=== PATIENT | female | born 1980 | race Caucasian/White ===

== ENCOUNTER 2019-09-19 18:06 | Inpatient (IN) | payer BC, OTHER ==
[~2019-09-19] VITALS: Ht 160 cm; Wt 74.9 kg
[2019-09-19 18:59] LABS: BASOPHILS # (AUTO) 0.1 X10'3 (0-0.2); BASOPHILS % (AUTO) 0.2 % (0-1); EOSINOPHILS % (AUTO) 0.1 % (0-6); HEMATOCRIT 39.7 % (35.0-45.0); HEMOGLOBIN 13.6 g/dl (12.0-16.0); LYMPHOCYTES # (AUTO) 1.5 X10'3 (1.1-4.8); LYMPHOCYTES % (AUTO) 6.5 % (21-51); MEAN CORPUSCULAR HEMOGLOBIN 30.3 PG (27.0-31.0); MEAN CORPUSCULAR HGB CONC 34.1 g/dL (33.0-36.5); MEAN CORPUSCULAR VOLUME 88.8 FL (78-98); MEAN PLATELET VOLUME 7.4 FL (7.4-10.4); MONOCYTES # (AUTO) 1.1 X10'3 (0-0.9); MONOCYTES % (AUTO) 4.6 % (2-12); NEUTROPHILS # (AUTO) 20.8 X10'3 (1.8-7.7); NEUTROPHILS % (AUTO) 88.6 % (42-75); PLATELET COUNT 432 X10'3 (140-440); RED BLOOD COUNT 4.47 X10'6 (4.20-5.60); RED CELL DISTRIBUTION WIDTH 12.7 % (11.5-14.5); WHITE BLOOD COUNT 23.5 X10'3 (4.5-11.0)
[2019-09-19 19:10] LABS: ALANINE AMINOTRANSFERASE 30 U/L (12-78); ALBUMIN 4.1 G/DL (3.4-5.0); ALBUMIN/GLOBULIN RATIO 1.1 (1.1-1.5); ALKALINE PHOSPHATASE 62 IU/L (46-116); ANION GAP 11 (8-16); ASPARTATE AMINO TRANSFERASE 25 U/L (10-37); BILIRUBIN,TOTAL 0.5 MG/DL (0.1-1.0); BLOOD UREA NITROGEN 13 MG/DL (7-18); BUN/CREATININE RATIO 21.3 (6.6-38.0); CALCIUM 8.8 MG/DL (8.5-10.1); CHLORIDE 101 MMOL/L (99-107); CREATININE 0.61 MG/DL (0.40-0.90); GLUCOSE 109 MG/DL (70-104); LIPASE 58 U/L (73-393); POTASSIUM 4.2 MMOL/L (3.5-5.1); SODIUM 137 MMOL/L (135-145); TOTAL CARBON DIOXIDE 24.9 MMOL/L (24-32); TOTAL PROTEIN 7.7 G/DL (6.4-8.2); eGFR > 90 ML/MIN
[2019-09-19] MEDS ORDERED: ondansetron 4mg rapidly disintigrating tab PO ONE (21:00)
[2019-09-19] MEDS ORDERED: morphine 4 MG/ML inj SYRINge IM ONE (21:00)
[2019-09-19 21:08] LABS: COLOR,URINE YELLOW (Yellow); GLUCOSE, URINE NEGATIVE (Neg); KETONES,URINE >=80 mg/dl (Neg); LEUKOCYTE ESTERASE ,URINE NEGATIVE (Neg); NITRITES, URINE NEGATIVE (Neg); OCCULT BLOOD,URINE MODERATE (Neg); PROTEIN,URINE NEGATIVE (Neg)
[2019-09-19] MEDS ORDERED: ondansetron/PF 4mg/2ml inj IV ONE (21:10)
[2019-09-19] MEDS ORDERED: morphine 4 MG/ML inj SYRINge IV ONE ×2 (21:10→22:05)
[2019-09-19 21:13] LABS: CLARITY,URINE SLIGHTLY CLOUDY (Clear); UA COLLECTION TYPE CLN CATCH MIDSTREAM
[2019-09-19 21:14] LABS: WBC,URINE 0-4 /HPF (0-4)
[2019-09-19 21:15] LABS: BACTERIA,URINE 2+ /HPF (Neg); MUCUS STRANDS MANY /LPF (Neg); RBC,URINE 0-2 /HPF (0-2); SQUAMOUS EPITHELIAL CELL,UR MODERATE /LPF (FEW)
[2019-09-19 21:23] LABS: URINE HCG NEGATIVE (NEG)
[2019-09-19] MEDS ORDERED: normal saline 1000ml 1,000 ML IV ONE (22:10)
[2019-09-19] MEDS ORDERED: HYDROmorphone 1 mg/ml syringe IV ONE (22:35)
[2019-09-19] MEDS ORDERED: ceFOXitin 1 GM/D5W 50mL IVPB 50 ML IV ONE (22:40)
[2019-09-19] MEDS ORDERED: DULO60CA65 PO (23:23)
[2019-09-19] MEDS ORDERED: DICL-182 PO (23:23)
[2019-09-19] MEDS ORDERED: GABA600T13 PO ×2 (23:23→23:25)
[2019-09-20] VITALS (19 sets, daily range): BP systolic 106–160; BP diastolic 65–99
[2019-09-20] MEDS ORDERED: D5W 1 GM IV SCH ×2
[2019-09-20] MEDS ORDERED: HYDROmorphone inj. 0.5 MG/0.5 ML DISP.SYRIN IV ONE
[2019-09-20] MEDS ORDERED: NORMAL SALINE IV SCH ×2
[2019-09-20] MEDS ORDERED: CEFOXITIN IV SCH ×2
--- NOTE | 2019-09-20 00:01 | NUR ---
PATIENT MOVED TO ROOM 13 IN THE MAIN ER PER LUI PANDEY DILAUDID TO BE GIVEN FOR OUT OF CONTROL ABDOMINAL PAIN. BEDSIDE REPORT TO MARISSA MORRIS.
[2019-09-20 00:02] LABS: PARTIAL THROMBOPLASTIN TIME 31 SECONDS (22-32)
--- NOTE | 2019-09-20 00:15 | NUR ---
PT EDUCATED ABOUT NPO STATUS
[2019-09-20] MEDS ORDERED: mag hydrox/Alum hydrox/simeth 30ml oral suspension PO PRN (01:10)
[2019-09-20] MEDS ORDERED: ondansetron/PF 4mg/2ml inj IV PRN ×2 (01:10→12:55)
[2019-09-20] MEDS ORDERED: morphine 2 MG/ML inj. syringe IV PRN (01:10)
[2019-09-20] MEDS ORDERED: acetaminophen 325mg tablet PO PRN (01:10)
[2019-09-20] MEDS ORDERED: magnesium hydroxide 30ml (MOM) UD suspension PO PRN (01:10)
[2019-09-20] MEDS: normal saline 1000ml 1,000 ML IV SCH ×4 (01:40→21:28)
--- NOTE | 2019-09-20 02:00 | NUR ---
RECEIVED PATIENT TO ROOM 4018 AND ASSUMED CARE.
[2019-09-20] MEDS: morphine 2 MG/ML inj. syringe IV PRN ×4 (02:08→10:22)
--- NOTE | 2019-09-20 06:29 | NUR ---
REPORT GIVEN TO HALLEY MORRIS
[2019-09-20] MEDS: gabapentin 400mg capsule PO SCH ×2 (07:31→21:00)
[2019-09-20] MEDS ORDERED: ceFOXitin 1 GM/D5W 50mL IVPB 1,000 GM in normal saline 100ml IV soln 100 ML IV SCH (08:00)
[2019-09-20] MEDS: duloxetine 30mg CAPSULE.DR PO SCH (08:00)
[2019-09-20] MEDS ORDERED: ceFOXitin 1 GM/D5W 50mL IVPB 50 ML IV SCH (08:00)
[2019-09-20] MEDS ORDERED: BUPIVAcaine/PF 2.5 mg/ml (0.25%) 30ml vial ONE (12:02)
[2019-09-20] MEDS ORDERED: ringers solution, lacted 1,000 ML IV SCH (12:51)
[2019-09-20] MEDS ORDERED: proCHLORperazine 10 MG/2 ml inj IV PRN (12:55)
[2019-09-20] MEDS ORDERED: morphine 4 MG/ML inj SYRINge IV PRN ×2 (12:55)
[2019-09-20] MEDS ORDERED: meperidine/PF 25mg/ml syringe IV PRN ×2 (12:55)
[2019-09-20] MEDS ORDERED: fentaNYL/PF 50MCG/1 ML 2ML syringe ONE (13:12)
[2019-09-20] MEDS ORDERED: rocuronium 10mg/ml inj IV ONE (13:12)
[2019-09-20] MEDS ORDERED: propofol inj 20 ML IV ONE (13:12)
[2019-09-20] MEDS ORDERED: midazolam 2 mg/2 ml injection ONE (13:12)
[2019-09-20] MEDS ORDERED: sevoflurane 250ml liquid IH ONE (13:26)
[2019-09-20] MEDS ORDERED: glycopyrrolate 0.2mg/ml inj ONE (13:26)
[2019-09-20] MEDS ORDERED: clindamycin phosphate 150mg/ml inj. ONE (14:10)
[2019-09-20] MEDS ORDERED: gentamicin 40 MG/1 ML inj ONE (14:10)
[2019-09-20] MEDS ORDERED: acetaminophen 1,000mg/100ml IV 100 ML IV ONE (14:24)
[2019-09-20] MEDS ORDERED: neostigmine methylsulfate 1 MG/ML 10ml vial ONE (14:28)
--- NOTE | 2019-09-20 14:45 | NUR ---
Received from OR via BED , accompanied by Anesthesiologist DR MEJIA and report given by Anesthesiolgist. PATIENT WAKING UP, C/O PAIN SEE EMAR, V/S WNL, NEUROVASCULAR CHECKS INTACT, 20G PIV LUE, SCD ON, DRESSING CDI TO ABDOMEN W/ JUVENAL DRAIN 15CC IN JUVENAL LIGHT RED WASH.
[2019-09-20] MEDS: meperidine/PF 25mg/ml syringe IV PRN ×2 (14:51→15:32)
[2019-09-20] MEDS: ketorolac trometh. 30mg/ml inj. IV PRN (15:31)
--- NOTE | 2019-09-20 15:45 | NUR ---
PATIENT SLEEPY BUT ORIENTED X4, C/O PAIN SEE EMAR, V/S WNL, NEUROVASCULAR CHECKS INTACT, 20G PIV LUE, SCD ON, DRESSING CDI TO ABDOMEN W/ JUVENAL DRAIN 10CC IN JUVENAL LIGHT RED WASH. . TAKEN TO 4018 WITH ALL BELONGINGS AND HOOKED UP TO MONITORS IN ROOM AND REPORT GIVEN TO SENIOR TELECOMMUNICATIONS ENGINEER WHO HAS TAKEN OVER PATIENT CARE.
[2019-09-20] MEDS: HYDROmorphone 1 mg/ml syringe IV PRN ×2 (16:03→20:16)
[2019-09-20] MEDS: piperacillin/tazo 3.375gm/50ml 50 ML IV SCH (17:00)
--- NOTE | 2019-09-20 18:15 | NUR ---
RECEIVED REPORT FROM HALLEY MORRIS AND ASSUMED PATIENT CARE
--- NOTE | 2019-09-20 18:22 | NUR ---
REPORT TO ANJEL MORRIS
[2019-09-21] MEDS: piperacillin/tazo 3.375gm/50ml 50 ML IV SCH ×3 (00:17→15:29)
[2019-09-21] MEDS: HYDROmorphone 1 mg/ml syringe IV PRN ×2 (05:20→10:46)
[2019-09-21 06:10] VITALS: BP 121/79
--- NOTE | 2019-09-21 06:24 | NUR ---
I received patient report from Divina MORRIS
[2019-09-21 06:37] LABS: BASOPHILS % (AUTO) 0.1 % (0-1); EOSINOPHILS % (AUTO) 0.1 % (0-6); HEMATOCRIT 36.3 % (35.0-45.0); HEMOGLOBIN 12.3 g/dl (12.0-16.0); LYMPHOCYTES # (AUTO) 1.6 X10'3 (1.1-4.8); LYMPHOCYTES % (AUTO) 7.4 % (21-51); MEAN CORPUSCULAR HEMOGLOBIN 30.4 PG (27.0-31.0); MEAN CORPUSCULAR HGB CONC 33.7 g/dL (33.0-36.5); MEAN PLATELET VOLUME 7.6 FL (7.4-10.4); MONOCYTES # (AUTO) 1.1 X10'3 (0-0.9); MONOCYTES % (AUTO) 5.1 % (2-12); NEUTROPHILS # (AUTO) 18.9 X10'3 (1.8-7.7); NEUTROPHILS % (AUTO) 87.3 % (42-75); PLATELET COUNT 415 X10'3 (140-440); RED BLOOD COUNT 4.04 X10'6 (4.20-5.60); RED CELL DISTRIBUTION WIDTH 13.1 % (11.5-14.5); WHITE BLOOD COUNT 21.7 X10'3 (4.5-11.0)
[2019-09-21 07:12] LABS: ALANINE AMINOTRANSFERASE 19 U/L (12-78); ALBUMIN 2.7 G/DL (3.4-5.0); ALBUMIN/GLOBULIN RATIO 0.8 (1.1-1.5); ALKALINE PHOSPHATASE 51 IU/L (46-116); ANION GAP 10 (8-16); ASPARTATE AMINO TRANSFERASE 12 U/L (10-37); BILIRUBIN,TOTAL 0.5 MG/DL (0.1-1.0); BLOOD UREA NITROGEN 10 MG/DL (7-18); BUN/CREATININE RATIO 11.1 (6.6-38.0); CALCIUM 7.6 MG/DL (8.5-10.1); CHLORIDE 105 MMOL/L (99-107); GLUCOSE 117 MG/DL (70-104); POTASSIUM 3.6 MMOL/L (3.5-5.1); SODIUM 140 MMOL/L (135-145); TOTAL CARBON DIOXIDE 25.3 MMOL/L (24-32); TOTAL PROTEIN 6.3 G/DL (6.4-8.2); eGFR 70 ML/MIN
[2019-09-21] MEDS: ketorolac trometh. 30mg/ml inj. IV PRN ×3 (07:40→20:22)
[2019-09-21] MEDS: duloxetine 30mg CAPSULE.DR PO SCH (07:40)
[2019-09-21 10:00] VITALS: BP 90/53
--- NOTE | 2019-09-21 12:08 | NUR ---
PAGER ID: [phone] MESSAGE: Dr. Martini patient Theresa Menard has gram negative rods from blood culture left IV on the anaerobic at 23 hours. Linda [id number]
--- NOTE | 2019-09-21 15:00 | NUR ---
Dr. England came by and ordered to unpack wound and place gauze dressing over, and do not re-pack wound. [place] in tact no drainage from wound site. JUVENAL still draining serous fluid.
[2019-09-21] MEDS: normal saline 1000ml 1,000 ML IV SCH ×2 (15:29→20:22)
--- NOTE | 2019-09-21 18:22 | NUR ---
Problems reprioritized. Patient report given, questions answered & plan of care reviewed with Divina MORRIS.
[2019-09-21] MEDS: heparin, porcine 5000 units/ml vial SQ SCH (20:22)
[2019-09-21] MEDS: gabapentin 400mg capsule PO SCH (21:00)
[2019-09-21 22:00] VITALS: BP 108/67
[2019-09-22] MEDS: piperacillin/tazo 3.375gm/50ml 50 ML IV SCH ×3 (01:28→16:02)
[2019-09-22] MEDS: normal saline 1000ml 1,000 ML IV SCH ×2 (03:08→19:48)
[2019-09-22] MEDS: ketorolac trometh. 30mg/ml inj. IV PRN ×3 (04:33→19:29)
[2019-09-22 06:00] VITALS: BP 113/72
--- NOTE | 2019-09-22 06:15 | NUR ---
REPORT GIVEN TO JANA MORRIS
--- NOTE | 2019-09-22 06:30 | NUR ---
Patient in room [facility] 4018. I have received report from Divina MORRIS and had the opportunity to ask questions and assume patient care.
[2019-09-22 06:49] LABS: BASOPHILS % (AUTO) 0.3 % (0-1); EOSINOPHILS # (AUTO) 0.2 X10'3 (0-0.9); EOSINOPHILS % (AUTO) 1.2 % (0-6); HEMOGLOBIN 11.5 g/dl (12.0-16.0); LYMPHOCYTES # (AUTO) 1.1 X10'3 (1.1-4.8); LYMPHOCYTES % (AUTO) 8.1 % (21-51); MEAN CORPUSCULAR HEMOGLOBIN 30.4 PG (27.0-31.0); MEAN CORPUSCULAR HGB CONC 33.8 g/dL (33.0-36.5); MEAN CORPUSCULAR VOLUME 89.7 FL (78-98); MEAN PLATELET VOLUME 7.6 FL (7.4-10.4); MONOCYTES # (AUTO) 0.6 X10'3 (0-0.9); MONOCYTES % (AUTO) 4.6 % (2-12); NEUTROPHILS # (AUTO) 11.8 X10'3 (1.8-7.7); NEUTROPHILS % (AUTO) 85.8 % (42-75); PLATELET COUNT 401 X10'3 (140-440); RED BLOOD COUNT 3.79 X10'6 (4.20-5.60); RED CELL DISTRIBUTION WIDTH 13.1 % (11.5-14.5); WHITE BLOOD COUNT 13.8 X10'3 (4.5-11.0)
[2019-09-22 07:02] LABS: ALANINE AMINOTRANSFERASE 17 U/L (12-78); ALBUMIN 2.4 G/DL (3.4-5.0); ALBUMIN/GLOBULIN RATIO 0.6 (1.1-1.5); ALKALINE PHOSPHATASE 55 IU/L (46-116); ANION GAP 7 (8-16); ASPARTATE AMINO TRANSFERASE 10 U/L (10-37); BILIRUBIN,TOTAL 0.3 MG/DL (0.1-1.0); BLOOD UREA NITROGEN 14 MG/DL (7-18); CHLORIDE 108 MMOL/L (99-107); GLUCOSE 100 MG/DL (70-104); SODIUM 142 MMOL/L (135-145); TOTAL PROTEIN 6.2 G/DL (6.4-8.2); eGFR > 90 ML/MIN
[2019-09-22] MEDS: duloxetine 30mg CAPSULE.DR PO SCH (08:09)
[2019-09-22] MEDS: heparin, porcine 5000 units/ml vial SQ SCH ×2 (08:10→19:42)
[2019-09-22] MEDS: HYDROmorphone 1 mg/ml syringe IV PRN (08:20)
[2019-09-22 10:00] VITALS: BP 102/68
[2019-09-22 18:00] VITALS: BP 113/67
--- NOTE | 2019-09-22 18:31 | NUR ---
Problems reprioritized. Patient report given, questions answered & plan of care reviewed with Melinda MORRIS.
--- NOTE | 2019-09-22 18:42 | NUR ---
Student documentation: I have reviewed and agree with all interventions, assessments performed and documented by Dasia.
--- NOTE | 2019-09-22 18:50 | NUR ---
Patient in room [facility]TH[facility] 4018. I have received report from Dasia MORRIS and had the opportunity to ask questions and assume patient care.
[2019-09-22] MEDS: gabapentin 400mg capsule PO SCH (19:51)
[2019-09-22 22:00] VITALS: BP 111/75
[2019-09-23] MEDS: normal saline 1000ml 1,000 ML IV SCH (02:13)
[2019-09-23] MEDS: HYDROmorphone 1 mg/ml syringe IV PRN ×2 (03:46→11:44)
[2019-09-23 06:00] VITALS: BP 120/72
[2019-09-23 06:07] LABS: BASOPHILS # (AUTO) 0.1 X10'3 (0-0.2); BASOPHILS % (AUTO) 0.8 % (0-1); EOSINOPHILS # (AUTO) 0.3 X10'3 (0-0.9); EOSINOPHILS % (AUTO) 3.4 % (0-6); HEMATOCRIT 30.9 % (35.0-45.0); HEMOGLOBIN 10.7 g/dl (12.0-16.0); LYMPHOCYTES % (AUTO) 11.5 % (21-51); MEAN CORPUSCULAR HEMOGLOBIN 30.9 PG (27.0-31.0); MEAN CORPUSCULAR HGB CONC 34.5 g/dL (33.0-36.5); MEAN CORPUSCULAR VOLUME 89.7 FL (78-98); MEAN PLATELET VOLUME 7.3 FL (7.4-10.4); MONOCYTES # (AUTO) 0.5 X10'3 (0-0.9); MONOCYTES % (AUTO) 5.9 % (2-12); NEUTROPHILS # (AUTO) 6.8 X10'3 (1.8-7.7); NEUTROPHILS % (AUTO) 78.4 % (42-75); PLATELET COUNT 424 X10'3 (140-440); RED BLOOD COUNT 3.44 X10'6 (4.20-5.60); RED CELL DISTRIBUTION WIDTH 13.2 % (11.5-14.5); WHITE BLOOD COUNT 8.7 X10'3 (4.5-11.0)
--- NOTE | 2019-09-23 06:30 | NUR ---
Problems reprioritized. Patient report given, questions answered & plan of care reviewed with Ameena MORRIS and Dasia MORRIS.
[2019-09-23 06:33] LABS: ANION GAP 8 (8-16); BLOOD UREA NITROGEN 13 MG/DL (7-18); BUN/CREATININE RATIO 21.3 (6.6-38.0); CALCIUM 8.1 MG/DL (8.5-10.1); CHLORIDE 109 MMOL/L (99-107); CREATININE 0.61 MG/DL (0.40-0.90); GLUCOSE 103 MG/DL (70-104); POTASSIUM 3.9 MMOL/L (3.5-5.1); SODIUM 145 MMOL/L (135-145); TOTAL CARBON DIOXIDE 27.8 MMOL/L (24-32); eGFR > 90 ML/MIN
[2019-09-23 06:34] LABS: ALANINE AMINOTRANSFERASE 16 U/L (12-78); ALBUMIN 2.4 G/DL (3.4-5.0); ALBUMIN/GLOBULIN RATIO 0.6 (1.1-1.5); ALKALINE PHOSPHATASE 52 IU/L (46-116); ASPARTATE AMINO TRANSFERASE 11 U/L (10-37); BILIRUBIN,TOTAL 0.4 MG/DL (0.1-1.0); TOTAL PROTEIN 6.1 G/DL (6.4-8.2)
[2019-09-23] MEDS: duloxetine 30mg CAPSULE.DR PO SCH (07:50)
[2019-09-23] MEDS: ketorolac trometh. 30mg/ml inj. IV PRN ×2 (07:51→19:50)
[2019-09-23] MEDS: piperacillin/tazo 3.375gm/50ml 50 ML IV SCH ×3 (07:51→15:57)
[2019-09-23] MEDS: heparin, porcine 5000 units/ml vial SQ SCH ×2 (07:51→19:49)
[2019-09-23] MEDS ORDERED: LEVO750T46 PO (09:46)
[2019-09-23 10:00] VITALS: BP 108/68
--- NOTE | 2019-09-23 12:49 | NUR ---
MD England came to see patient. New orders received per MD England D/C Thursday and f/u with him one week from Thursday. MD England made aware of JUVENAL drainage amount, ordered for JUVENAL drain to be discontinued.
[2019-09-23] MEDS: HYDROcodone/acetaminophen 10/325mg tab PO PRN (15:57)
--- NOTE | 2019-09-23 17:00 | NUR ---
JUVENAL drain discontinued. Tubing intact. No redness, pain, or discharge.
[2019-09-23 18:00] VITALS: BP 112/73
--- NOTE | 2019-09-23 18:05 | NUR ---
Problems reprioritized. Patient report given, questions answered & plan of care reviewed with Melinda MORRIS.
--- NOTE | 2019-09-23 18:24 | NUR ---
Patient in room [facility] 4018. I have received report from Ameena MORRIS and Dasia MORRIS and had the opportunity to ask questions and assume patient care.
[2019-09-23] MEDS: gabapentin 400mg capsule PO SCH (19:55)
[2019-09-23 22:00] VITALS: BP 128/76
[2019-09-24] MEDS: piperacillin/tazo 3.375gm/50ml 50 ML IV SCH ×2 (00:05→07:19)
[2019-09-24] MEDS: HYDROcodone/acetaminophen 10/325mg tab PO PRN ×2 (04:08→10:30)
[2019-09-24 05:00] VITALS: BP 110/73
--- NOTE | 2019-09-24 06:37 | NUR ---
Problems reprioritized. Patient report given, questions answered & plan of care reviewed with Ameena MORRIS and Dasia MORRIS.
[2019-09-24] MEDS: heparin, porcine 5000 units/ml vial SQ SCH (07:19)
[2019-09-24] MEDS: duloxetine 30mg CAPSULE.DR PO SCH (07:19)
[2019-09-24 07:28] LABS: BASOPHILS # (AUTO) 0.1 X10'3 (0-0.2); BASOPHILS % (AUTO) 0.9 % (0-1); EOSINOPHILS # (AUTO) 0.4 X10'3 (0-0.9); EOSINOPHILS % (AUTO) 5.2 % (0-6); HEMATOCRIT 29.4 % (35.0-45.0); HEMOGLOBIN 10.2 g/dl (12.0-16.0); LYMPHOCYTES # (AUTO) 1.5 X10'3 (1.1-4.8); LYMPHOCYTES % (AUTO) 19.4 % (21-51); MEAN CORPUSCULAR HGB CONC 34.9 g/dL (33.0-36.5); MEAN PLATELET VOLUME 6.9 FL (7.4-10.4); MONOCYTES # (AUTO) 0.6 X10'3 (0-0.9); MONOCYTES % (AUTO) 8.1 % (2-12); NEUTROPHILS % (AUTO) 66.4 % (42-75); PLATELET COUNT 461 X10'3 (140-440); RED CELL DISTRIBUTION WIDTH 13.1 % (11.5-14.5); WHITE BLOOD COUNT 7.6 X10'3 (4.5-11.0)
[2019-09-24 07:44] LABS: ALANINE AMINOTRANSFERASE 17 U/L (12-78); ALBUMIN 2.4 G/DL (3.4-5.0); ALBUMIN/GLOBULIN RATIO 0.6 (1.1-1.5); ALKALINE PHOSPHATASE 51 IU/L (46-116); ANION GAP 8 (8-16); ASPARTATE AMINO TRANSFERASE 10 U/L (10-37); BILIRUBIN,TOTAL 0.2 MG/DL (0.1-1.0); BLOOD UREA NITROGEN 16 MG/DL (7-18); BUN/CREATININE RATIO 24.2 (6.6-38.0); CALCIUM 8.5 MG/DL (8.5-10.1); CHLORIDE 110 MMOL/L (99-107); CREATININE 0.66 MG/DL (0.40-0.90); GLUCOSE 126 MG/DL (70-104); POTASSIUM 3.4 MMOL/L (3.5-5.1); SODIUM 147 MMOL/L (135-145); TOTAL CARBON DIOXIDE 28.7 MMOL/L (24-32); TOTAL PROTEIN 6.1 G/DL (6.4-8.2); eGFR > 90 ML/MIN
[2019-09-24 09:00] VITALS: BP 126/79
[2019-09-24] MEDS ORDERED: HYDROcodone/acetaminophen 5mg/325mg tablet PO PRN (13:25)
[2019-09-24] MEDS ORDERED: AMOX-422 PO (13:28)
--- NOTE | 2019-09-24 14:08 | NUR ---
Clarified discharge orders for antibiotics with Dr. Martini and Dr. Chakraborty. Dr. Martini recommended for patient to be discharged with levaquin. Called Dr. Chakraborty to clarify if he wants levaquin or augmentin, he made it clear he wants to discharge patient with augmentin.
[2019-09-24] MEDS: ketorolac trometh. 30mg/ml inj. IV PRN (15:00)
== END 2019-09-24 15:45 | disposition home or self-care (01) | DRG 340 ==
LOC: ER 18:07 → ED HOLD 09-20 01:13 → EDBEDREQSVC 09-20 01:58 → ORTHO 4S 09-20 02:00
PROVIDERS: ADMIT Internal Medicine; ATTEND Family Medicine
PROC: 0WJG4ZZ Inspection of Peritoneal Cavity, Percutaneous Endoscopic Approach (ICD-10-PCS; 2019-09-20)
PROC: 0DTJ0ZZ Resection of Appendix, Open Approach (ICD-10-PCS; principal; 2019-09-20 13:26)
DX: K35.33 Acute appendicitis with perforation, localized peritonitis, and gangrene, with abscess (principal); F17.210 Nicotine dependence, cigarettes, uncomplicated; K56.41 Fecal impaction; N20.0 Calculus of kidney; N83.201 Unspecified ovarian cyst, right side; Z86.73 Personal history of transient ischemic attack (TIA), and cerebral infarction without residual deficits; Z98.891 History of uterine scar from previous surgery
CPT/HCPCS: Z7506; Z7508; 36415; 74176; 80053; 81001; 81025; 83605; 83690; 85025; 85610; 85730; 86885; 86900; 86901; 87040; 87070; 87075; 87076; 87077; 87081; 87102; 87185; 87186; A4215; A4314; A4618; A6253; A6402; A6407; A7000; G0378; J0131; J0694; J1170; J1580; J1644; J1885; J2175; J2250; J2270; J2405; J2543; J2704; J2710; J3010; J3490; J7030; J7120

== ENCOUNTER 2024-08-30 13:25 | Emergency (ER) | payer BC ==
[~2024-08-30] VITALS: Ht 160 cm; Wt 86.6 kg
[~2024-08-30 13:25] MED LIST: DULO60CA65 PO; GABA-1405 PO
[2024-08-30 13:52] VITALS: BP 151/94; PULSE 101; O2SAT 98
[2024-08-30 16:01] VITALS: RESP 16
[2024-08-30] MEDS: ketorolac trometh 15mg/ml vial 15 MG/ML ML IM ONE (16:01)
[2024-08-30 16:11] VITALS: TEMP 97.8
== END 2024-08-30 16:13 | disposition home or self-care (01) ==
LOC: ER 13:26
DX: M25.561 Pain in right knee (principal); Z86.73 Personal history of transient ischemic attack (TIA), and cerebral infarction without residual deficits; W01.0XXA Fall on same level from slipping, tripping and stumbling without subsequent striking against object, initial encounter; Y93.89 Activity, other specified; Y92.89 Other specified places as the place of occurrence of the external cause; Y99.8 Other external cause status
CPT/HCPCS: 73564; 96372; 99283; J1885; A6449